=== PATIENT | female | born 1950 | race African-American/Black ===

== ENCOUNTER → 2016-06-09 | Outpatient (CLI) | payer OTHER ==
[~2016-06-09] MED LIST: CARVEDILOL 1212.5 MG PO; DELSYM30 MG/5 ML PO; ECOTRIN325 MG PO; FLEXERIL10 MG PO; KEFLEX 500MG.500 MG PO; LISINOPRIL 20MG20 MG PO; METOPROLOL PO; MOTRIN600 MG PO; PLAVIX75 MG PO; PRAVASTATIN SOD80 MG PO; PREDNISONE 10MG10 MG PO; SIMVASTATIN10 MG PO; TESSALON PERLE100 M1 PO; TESSALON PERLE100 MG PO; VIBRAMYCIN 100100 MG PO; VITAMIN D50000 IU PO
--- NOTE | 2016-06-09 11:32 | RADIOLOGY REPORT PS360 ---
KNEE-4 OR 5 VIEWS-RT HISTORY: RT KNEE PAIN ORDERING PHYSICIAN: Cezar Hanna MD PATIENT AGE: 65 years COMPARISON: None FINDINGS: Technique: Weightbearing AP, lateral and Barton views were performed as well as oblique. No fracture or dislocation. No lytic or blastic change. Normal mineralization. No significant arthritic changes evident. No other significant findings IMPRESSION: Negative Knee
== END ==
LOC: RAD 10:15
DX: M25.561 Pain in right knee (principal)

== ENCOUNTER 2016-12-21 22:55 | Emergency (ER) | payer OTHER ==
[~2016-12-21] VITALS: Ht 160 cm; Wt 62.6 kg
[2016-12-21] MEDS ORDERED: HYDROCHLOROTH12.5 M1 PO (23:10)
--- NOTE | 2016-12-21 23:15 | Emergency Room Report ---
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 N Clinical Suspician of Infection? N Mental Status: 1 - Regular (Normal Baseline) Sepsis Risk:Possible Sepsis Risk Have you (or family members/close friends) recently traveled outside the [place]? N If Yes, where/when: Have you had exposure to infectious disease within the past month? N TB? Other? Specify: Source patient, RN notes reviewed, family, old records Exam Limitations no limitations Comment pt with acute not feeling well but no chest pain or syncope but has elevated bp despite meds which she is compliant Cardiac Chest Pain Chest pain indicative of cardiac No Timing/Duration this evening Severity moderate ALLERGIES Coded Allergies: No Known Allergies (05/25/16) Home Medications Reported Medications LISINOPRIL (Lisinopril) 5 MG PO BID Clopidogrel Bisulfate (Plavix) 75 MG PO DAILY Aspirin (Ecotrin 325MG Tab) 81 MG PO DAILY Carvedilol (Carvedilol 12.5MG) 3.125 MG PO BID #60 Pravastatin Sodium (Pravastatin 80MG) 80 MG PO QHS #30 Dextromethorphan Polistirex (Delsym) 1 TSP PO Q12H Hydrochlorothiazide (Hydrochlorothiazide 12.5MG) 12.5 MG PO DAILY History Medical History General CAD? No Angina: Yes NE: Yes Hypertension? Yes Hyperlipidemia? Yes CHF? No DVT? No PE? No COPD? No Asthma? No Anemia? No GERD? No Gastric ulcers? No GI Bleed? No Hernia? No Thyroid Problems? No Hypothyroidism? No CVA? No Seizures? No Diabetes? No Renal Insuffiency? No End Stage Renal Disease? No UTI? Yes Stones? No BPH? No GB Disease: No Nephritic Syndrome? No Asplenia? No Hepatitis? Yes Sickle Cell Disease? No Arthritis? No Migraines? No Cataracts? No Glaucoma? No MRSA? No HIV? No TB? No Anxiety? No Depression? No Cancer? No Immunization Hx DT/Tetanus 1996 Flu [id number] Pneumonia Received In Past Surgical Hx Previous Surgery?Y TUBAL CYST REMOVED R EAR STENTS X2 HEART Coronary Artery Bypass Family History Family Hx Diabetes Yes CAD Yes Hypertension Yes Hyperlipidemia Yes Cancer Yes TB No Social History Smoking Hx Smoker: Current Every Day Smoker Tobacco: Yes Type Cigarettes Packs/day < 1 Pack Alcohol Alcohol: No Drugs none Review of Systems All Other Systems Reviewed and Negative Constitutional see HPI, denies fever, other Eyes denies drainage ENT denies: ear discharge, epistaxis, throat pain. Respiratory denies cough, denies shortness of breath, denies wheezing Cardiovascular denies chest pain, denies palpitations, denies syncope Gastrointestinal see HPI, nausea, denies vomiting Genitourinary denies: dysuria, frequency, hesitancy, hematuria. Musculoskeletal denies back pain, denies joint pain, denies joint swelling, denies neck pain Skin denies rash Psychiatric/Neurological denies headache, denies seizure Physical Exam Vital Signs Vital Signs Date Time Temp Pulse Resp B/P Pulse O2 O2 Flow FiO2 Ox Delivery Rate 12/22 0034 98.0 75 20 128/74 98 12/21 2301 98.0 98 20 225/119 98 - WBC >12,000 or <4,000 or 10% bands? 2 or more SIRS Criteria Met? B/P:128/74 MAP:154 Creatinine >2.0? UA output<0.5ml/kg/hr for 2 hrs? Platelet count >100,000? Lactate >2.0mmol/1? INR >1.2 or PTT > than 60 sec? Evidence of Organ Dysfunction? Provider documented clinical suspician of infection? N Sepsis Criteria Count: 2 Sepsis Risk: Possible Sepsis Risk General Appearance no apparent distress Eye Exam - bilateral eye PERRL, bilateral eye EOMI Ear, Nose, Throat normal ENT inspection Neck non-tender Respiratory Status No: respiratory distress. Lung Sounds bilateral: lungs clear. 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 No Results/Orders Laboratory Tests 12/22/16 0050: Troponin I 0.07 H 12/21/16 2340: Sodium 138, Potassium 3.8, Chloride 103, Carbon Dioxide 31, BUN 18, Creatinine 0.9, Estimated Creat Clear 62, Estimated GFR (MDRD) 63, Glucose 156 H, Calcium 9.5, Total Bilirubin 0.2, AST 10 L, ALT 19, Alkaline Phosphatase 130 H, Troponin I 0.07 H, Total Protein 7.3, Albumin 3.9, Globulin 3.4 H, Albumin/ Globulin Ratio 1.1, WBC 6.7, RBC 5.56 H, Hgb 15.6, Hct 47.3 H, MCV 85.0, RDW 15.0, Plt Count 274, Gran % 62.3, Gran # 4.2, Lymphocytes % 34.2, Monocytes % 3.5, Lymphocytes # 2.3, Monocytes # 0.2, PUBS MCHC 33.0, MCH 28.1 Current Medication Orders Sig/Alfonso Start time Last Medication Dose Route Stop Time Status Admin Clonidine HCl 0 .STK-MED ONE 12/21 2333 DC .ROUTE Clonidine HCl 0.1 MG ONCE ONE 12/21 2314 DC 12/21 PO 12/21 Sodium Chloride 10 ML PRN PRN 12/21 2314 AC IV 12/22 2314 Orders Procedure Date/time Status TROPONIN I 12/22 004 Complete ELECTROCARDIOGRAM REQUEST 12/22 003 Active IV SALINE LOCK 12/21 2314 Active TROPONIN I 12/21 2314 Complete COMPLETE METABOLIC PANEL 12/21 2314 Complete CBC WITH AUTO DIFF 12/21 2314 Complete 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 ST/Twave chgs Departure Departure Time of Disposition 004 Disposition DC Home or Self Care(routine) Clinical Impression Primary Impression: Hypertensive crisis Condition STABLE Referrals Isael Washington MD (Family) Patient Instructions Treatments for High Blood Pressure: More Than Just Taking a Pill ED Critical Care Critical Care No at 0120
--- NOTE | 2016-12-21 23:15 | Emergency Room Report ---
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 N Clinical Suspician of Infection? N Mental Status: 1 - Regular (Normal Baseline) Sepsis Risk:Possible Sepsis Risk Have you (or family members/close friends) recently traveled outside the [place]? N If Yes, where/when: Have you had exposure to infectious disease within the past month? N TB? Other? Specify: Source patient, RN notes reviewed, family, old records Exam Limitations no limitations Comment pt with acute not feeling well but no chest pain or syncope but has elevated bp despite meds which she is compliant Cardiac Chest Pain Chest pain indicative of cardiac No Timing/Duration this evening Severity moderate ALLERGIES Coded Allergies: No Known Allergies (05/25/16) Home Medications Reported Medications LISINOPRIL (Lisinopril) 5 MG PO BID Clopidogrel Bisulfate (Plavix) 75 MG PO DAILY Aspirin (Ecotrin 325MG Tab) 81 MG PO DAILY Carvedilol (Carvedilol 12.5MG) 3.125 MG PO BID #60 Pravastatin Sodium (Pravastatin 80MG) 80 MG PO QHS #30 Dextromethorphan Polistirex (Delsym) 1 TSP PO Q12H Hydrochlorothiazide (Hydrochlorothiazide 12.5MG) 12.5 MG PO DAILY History Medical History General CAD? No Angina: Yes [place]: Yes Hypertension? Yes Hyperlipidemia? Yes CHF? No DVT? No PE? No COPD? No Asthma? No Anemia? No GERD? No Gastric ulcers? No GI Bleed? No Hernia? No Thyroid Problems? No Hypothyroidism? No CVA? No Seizures? No Diabetes? No Renal Insuffiency? No End Stage Renal Disease? No UTI? Yes Stones? No BPH? No GB Disease: No Nephritic Syndrome? No Asplenia? No Hepatitis? Yes Sickle Cell Disease? No Arthritis? No Migraines? No Cataracts? No Glaucoma? No MRSA? No HIV? No TB? No Anxiety? No Depression? No Cancer? No Immunization Hx DT/Tetanus 1996 Flu [id number] Pneumonia Received In Past Surgical Hx Previous Surgery?Y TUBAL CYST REMOVED R EAR STENTS X2 HEART Coronary Artery Bypass Family History Family Hx Diabetes Yes CAD Yes Hypertension Yes Hyperlipidemia Yes Cancer Yes TB No Social History Smoking Hx Smoker: Current Every Day Smoker Tobacco: Yes Type Cigarettes Packs/day < 1 Pack Alcohol Alcohol: No Drugs none Review of Systems All Other Systems Reviewed and Negative Constitutional see HPI, denies fever, other Eyes denies drainage ENT denies: ear discharge, epistaxis, throat pain. Respiratory denies cough, denies shortness of breath, denies wheezing Cardiovascular denies chest pain, denies palpitations, denies syncope Gastrointestinal see HPI, nausea, denies vomiting Genitourinary denies: dysuria, frequency, hesitancy, hematuria. Musculoskeletal denies back pain, denies joint pain, denies joint swelling, denies neck pain Skin denies rash Psychiatric/Neurological denies headache, denies seizure Physical Exam Vital Signs Vital Signs Date Time Temp Pulse Resp B/P Pulse O2 O2 Flow FiO2 Ox Delivery Rate 12/22 0034 98.0 75 20 128/74 98 12/21 2301 98.0 98 20 225/119 98 - WBC >12,000 or <4,000 or 10% bands? 2 or more SIRS Criteria Met? B/P:128/74 MAP:154 Creatinine >2.0? UA output<0.5ml/kg/hr for 2 hrs? Platelet count >100,000? Lactate >2.0mmol/1? INR >1.2 or PTT > than 60 sec? Evidence of Organ Dysfunction? Provider documented clinical suspician of infection? N Sepsis Criteria Count: 2 Sepsis Risk: Possible Sepsis Risk General Appearance no apparent distress Eye Exam - bilateral eye PERRL, bilateral eye EOMI Ear, Nose, Throat normal ENT inspection Neck non-tender Respiratory Status No: respiratory distress. Lung Sounds bilateral: lungs clear. 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 No Results/Orders Laboratory Tests 12/22/16 0050: Troponin I 0.07 H 12/21/16 2340: Sodium 138, Potassium 3.8, Chloride 103, Carbon Dioxide 31, BUN 18, Creatinine 0.9, Estimated Creat Clear 62, Estimated GFR (MDRD) 63, Glucose 156 H, Calcium 9.5, Total Bilirubin 0.2, AST 10 L, ALT 19, Alkaline Phosphatase 130 H, Troponin I 0.07 H, Total Protein 7.3, Albumin 3.9, Globulin 3.4 H, Albumin/ Globulin Ratio 1.1, WBC 6.7, RBC 5.56 H, Hgb 15.6, Hct 47.3 H, MCV 85.0, RDW 15.0, Plt Count 274, Gran % 62.3, Gran # 4.2, Lymphocytes % 34.2, Monocytes % 3.5, Lymphocytes # 2.3, Monocytes # 0.2, PUBS MCHC 33.0, MCH 28.1 Current Medication Orders Sig/Alfonso Start time Last Medication Dose Route Stop Time Status Admin Clonidine HCl 0 .STK-MED ONE 12/21 2333 DC .ROUTE Clonidine HCl 0.1 MG ONCE ONE 12/21 2314 DC 12/21 PO 12/21 Sodium Chloride 10 ML PRN PRN 12/21 2314 AC IV 12/22 2314 Orders Procedure Date/time Status TROPONIN I 12/22 004 Complete ELECTROCARDIOGRAM REQUEST 12/22 003 Active IV SALINE LOCK 12/21 2314 Active TROPONIN I 12/21 2314 Complete COMPLETE METABOLIC PANEL 12/21 2314 Complete CBC WITH AUTO DIFF 12/21 2314 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 ST/Twave chgs Departure Departure Time of Disposition 004 Disposition DC Home or Self Care(routine) Clinical Impression Primary Impression: Hypertensive crisis Condition STABLE Referrals Isael Washington MD (Family) Patient Instructions Treatments for High Blood Pressure: More Than Just Taking a Pill ED Critical Care Critical Care No at 0120
[2016-12-22 00:15] LABS: HEMOGLOBIN 15.6 g/dL (12.2-16.2); LYMPH % 34.2 % (10-50.0)
[2016-12-22 00:16] LABS: LYMPH # 2.3 K/mm3 (0.7-4.5)
[2016-12-22 01:35] VITALS: BP 158/88
== END 2016-12-22 01:39 | disposition home or self-care (01) ==
LOC: ER 22:55
PROVIDERS: Emergency Medicine
DX: I10 Essential (primary) hypertension (principal); Z79.82 Long term (current) use of aspirin; E78.5 Hyperlipidemia, unspecified; F17.210 Nicotine dependence, cigarettes, uncomplicated